=== PATIENT | male | born 1990 | race Caucasian/White ===

== ENCOUNTER 2021-10-24 06:42 | Emergency (ER) | payer OTHER ==
[2021-10-24 07:21] LABS: ALBUMIN 4.7 g/dL (3.2-5.5); ALBUMIN/GLOBULIN RATIO 1.9 (1.0-2.2); BILIRUBIN,TOTAL 0.9 mg/dL (0.2-1.0); CALCIUM 9.6 mg/dL (8.5-10.3); POTASSIUM 3.5 mmol/L (3.5-5.0); TOTAL PROTEIN 7.2 g/dL (6.7-8.2)
[2021-10-24] MEDS ORDERED: KETOROLAC 30 MG/ML VIAL IVP STA (07:24)
--- NOTE | 2021-10-24 07:27 | ED Physician Documentation ---
PD HPI ABD PAIN - Stated complaint Stated Complaint: ABD PX - Chief complaint Chief Complaint: Abd Pain - History obtained from History obtained from: Patient - History of Present Illness Timing - onset: Enter time (429), Today Timing - duration: Hours Timing - details: Gradual onset, Still present Quality: Sharp, Pain Location: RUQ Radiation: Chest Improved by: Laying still Worsened by: Breathing, Position, Palpation Associated symptoms: Nausea. No: Fever, Vomiting, Diarrhea, Constipation Similar symptoms before: Has not had sx before Recently seen: Not recently seen - Additional information Additional information: 31-year-old male with abdominal pain that started up gradually about 4:30 in the morning has had an increase in his pain to where it is difficult for him to take a deep breath. Indicates pain is in the right upper quadrant, has never had an episode like this previously, last had a hamburger to eat. Works night shifts, went home to try to lay down and found this pain mounting on him. He has not had a fever or vomiting. His pain is somewhat better as time has gone on here in the emergency department. Review of Systems Constitutional: denies: Fever Eyes: denies: Decreased vision Ears: denies: Ear pain Nose: denies: Congestion Throat: denies: Sore throat Cardiac: denies: Chest pain / pressure, Palpitations Respiratory: denies: Dyspnea, Cough GI: reports: Abdominal Pain. denies: Vomiting, Constipation, Diarrhea : denies: Dysuria, Frequency Skin: denies: Rash Musculoskeletal: denies: Neck pain, Back pain, Extremity pain Neurologic: denies: Generalized weakness, Focal weakness, Numbness PD PAST MEDICAL HISTORY - Past Medical History Past Medical History: Yes Cardiovascular: None Respiratory: None Neuro: None Endocrine/Autoimmune: None GI: None : None HEENT: None Psych: None Musculoskeletal: Chronic back pain Derm: None - Present Medications Home Medications: Ambulatory Orders Medication Instructions Recorded Confirmed No Known Home Medications 10/24/21 10/24/21 - Allergies Allergies/Adverse Reactions: Allergies Allergy/AdvReac Type Severity Reaction Status Date / Time No Known Drug Allergies Allergy Verified 10/24/21 07:09 - Social History Does the pt smoke?: No Smoking Status: Never smoker Does the pt drink ETOH?: Yes Does the pt have substance abuse?: No - Immunizations Immunizations are current?: Yes - POLST Patient has POLST: No PD ED PE NORMAL - Vitals Vital signs reviewed: Yes (tachypneic and hypertensive ) - General General: Alert and oriented X 3, Well developed/nourished, Other (winches with a deep breath) - HEENT HEENT: Atraumatic, PERRL, EOMI - Neck Neck: Supple, no meningeal sign, No bony TTP - Cardiac Cardiac: RRR, No murmur - Respiratory Respiratory: No respiratory distress, Clear bilaterally - Abdomen Abdomen: Normal bowel sounds, Soft, Non distended, No organomegaly, Other (RUQ tenderness to palpation with arrest of respiration) - Back Back: No CVA TTP, No spinal TTP - Derm Derm: Normal color, Warm and dry, No rash - Extremities Extremities: No deformity, No edema - Neuro Neuro: Alert and oriented X 3, 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, No motor deficit, No sensory deficit, Normal speech Eye Opening: Spontaneous Motor: Obeys Commands Verbal: Oriented GCS Score: 15 - Psych Psych: Normal mood, Normal affect Results - Vitals Vitals: Vital Signs - 24 hr 10/24/21 06:59 Temperature 37.1 C Heart Rate 79 Respiratory 26 H Rate Blood Pressure 150/105 H O2 Saturation 96 Oxygen O2 Source Room air - Labs Labs: Laboratory Tests 10/24/21 10/24/21 10/24/21 06:55 06:55 07:35 WBC 10.9 H RBC 5.30 Hgb 16.0 Hct 44.6 MCV 84.2 MCH 30.2 MCHC 35.9 RDW 11.6 L Plt Count 306 MPV 9.2 Neut # (Auto) 5.8 Lymph # (Auto) 3.7 H [place] # (Auto) 0.9 Eos # (Auto) 0.4 Baso # (Auto) 0.1 Absolute Nucleated RBC 0.00 Nucleated RBC % 0.0 Sodium 136 Potassium 3.5 Chloride 100 L Carbon Dioxide 27 Anion Gap 9.0 BUN 12 Creatinine 1.0 Estimated GFR (MDRD) 88 L Glucose 107 H Calcium 9.6 Total Bilirubin 0.9 AST 26 ALT 58 Alkaline Phosphatase 72 Total Protein 7.2 Albumin 4.7 Globulin 2.5 Albumin/Globulin Ratio 1.9 Lipase 34 Urine Color YELLOW Urine Clarity CLEAR Urine pH 6.5 Ur Specific [place] 1.010 Urine Protein NEGATIVE Urine Glucose (UA) NEGATIVE Urine Ketones NEGATIVE Urine Occult Blood NEGATIVE Urine Nitrite NEGATIVE Urine Bilirubin NEGATIVE Urine Urobilinogen 0.2 (NORMAL) Ur Leukocyte Esterase NEGATIVE Ur Microscopic Review NOT INDICATED Urine Culture Comments NOT INDICATED - Rads (name of study) gb u/s Radiology: Prelim report reviewed (Impression: Cholelithiasis with focal gallbladder wall thickening in the gallbladder neck and a nonmobile stone seen in the gallbladder neck.), EMP read indepedently, See rad report Procedures - Bedside sono Bedside sono by EMP: With use of bedside ultrasound the right upper quadrant is imaged and there is a sonographically tender gallbladder with shadowing stones. PD MEDICAL DECISION MAKING - ED course Complexity details: reviewed results, re-evaluated patient, considered differential, d/w patient ED course: 31-year-old male with acute right upper quadrant abdominal pain has improvement in his pain as he is here in the emergency department he does continue to have pain and he has shadowing stones in his gallbladder and a tender gallbladder on sonographic bedside examination. A formal ultrasound is ordered the patient is administered 30 mg of Toradol intravenously. The patient's biochemical profile does not indicate evidence of obstruction. Departure - Departure Disposition: 01 Home, Self Care Clinical Impression: Cholelithiasis Qualifiers: Cholelithiasis location: gallbladder Cholecystitis presence: without cholecystitis Biliary obstruction: without biliary obstruction Qualified Code( s): K80.20 - Calculus of gallbladder without cholecystitis without obstruction Condition: Stable Instructions: ED Diet Low Fat, ED Gallstone W Biliary Colic Follow-Up: [facility] Alfonso [Provider Group] Ervin Nicholson MD [Provider Admit Priv/Credential] - Comments: Shahab, today it looks like you have gallstones and you are having a gallbladder attack. Gallbladder attacks typically last 4 to 5 hours and usually occur in the immigration case manager hours. This is likely to recur and the recommendation is to have your gallbladder taken out. You have stones that are of the size to possibly cause other complications such as a common duct stone or cholecystitis. Follow up with the surgeon to discuss options.
[2021-10-24 07:28] LABS: BASOPHILS # (AUTO) 0.1 10^3/uL (0.0-0.1); BASOPHILS % (AUTO) 0.5 %; EOSINOPHILS # (AUTO) 0.4 10^3/uL (0.0-0.7); EOSINOPHILS % (AUTO) 3.9 %; HCT - HEMATOCRIT 44.6 % (42.0-52.0); LYMPHOCYTES # (AUTO) 3.7 10^3/uL (1.5-3.5); MEAN CORPUSCULAR HEMOGLOBIN 30.2 pg (27.0-31.0); MEAN CORPUSCULAR HGB CONC 35.9 g/dL (32.0-36.0); MEAN CORPUSCULAR VOLUME 84.2 fL (80.0-94.0); MEAN PLATELET VOLUME 9.2 fL (7.4-11.4); MONOCYTES # (AUTO) 0.9 10^3/uL (0.0-1.0); MONOCYTES % (AUTO) 8.3 %; NEUTROPHILS # (AUTO) 5.8 10^3/uL (1.5-6.6); NEUTROPHILS % (AUTO) 52.9 %; PLT - PLATELET COUNT 306 10^3/uL (130-450); RED CELL DISTRIBUTION WIDTH 11.6 % (12.0-15.0); WHITE BLOOD COUNT 10.9 x10^3/uL (4.8-10.8)
[2021-10-24 07:46] LABS: BILIRUBIN,URINE NEGATIVE (NEGATIVE); GLUCOSE, URINE (UA) NEGATIVE (NEGATIVE); KETONES,URINE (UA) NEGATIVE (NEGATIVE); LEUKOCYTE ESTERASE, URINE NEGATIVE (NEGATIVE); NITRITE,URINE NEGATIVE (NEGATIVE); OCCULT BLOOD,URINE NEGATIVE (NEGATIVE); PH,URINE 6.5 PH (5.0-7.5); PROTEIN,URINE NEGATIVE (NEGATIVE); UROBILINOGEN,URINE 0.2 (NORMAL) E.U./dL (NORMAL)
[2021-10-24 07:47] LABS: CLARITY,URINE CLEAR (CLEAR)
--- NOTE | 2021-10-24 10:17 | Ultrasound Report ---
PROCEDURE: Abdomen Limited INDICATIONS: RUQ pain TECHNIQUE: Real-time focused scanning was performed of the abdomen, with image documentation. COMPARISON: None FINDINGS: Liver measures 16.6 cm, within normal limits. Hepatic echotexture is normal. The gallbladder contains sludge and stones. There is a focal area of wall thickening near the neck, h owever the remaining gallbladder demonstrates no wall thickening. A nonmobile stone is noted within t he gallbladder neck. The pancreas is not well-visualized due to overlying bowel gas. The right kidney is normal. IMPRESSION: Cholelithiasis with focal gallbladder wall thickening in the gallbladder neck and a non mobile stone seen in the gallbladder neck. Reviewed by: Maciej Capone on 10/24/2021 9:15 AM [facility] Approved by: Maciej Capone on 10/24/2021 9:15 AM [facility] Station ID: [id number]
[2021-10-24 10:31] VITALS: BP 128/79
== END 2021-10-24 10:31 | disposition home or self-care (01) ==
LOC: ED 06:42
DX: K80.20 Calculus of gallbladder without cholecystitis without obstruction (principal)
CPT/HCPCS: 36415; 80053; 81001; 81003; 83690; 85025; 87086; 96374; 99284

== ENCOUNTER 2022-01-08 12:08 | Day surgery (SDC) | payer OTHER ==
[2022-01-08] MEDS ORDERED: LACTATED RINGERS 1,000 ML IV ONE (12:23)
--- NOTE | 2022-01-08 12:57 | ANESTHESIA ---
Pre-Anesthesia VS, & Labs - Diagnosis chronic cholecystitis - Procedure lap [email or web address] Vital Signs: Temp Pulse Resp BP Pulse Ox 36.7 C 74 16 130/79 100 01/08/22 12:15 01/08/22 12:15 01/08/22 12:15 01/08/22 12:15 01/08/22 12:15 Height: 6 ft 3 in Weight (kg): 101.3 kg Body Mass Index: 27.9 BMI Classification: Overweight - NPO >8 hours Home Medications and Allergies No Known Home Medications 10/24/21 Allergies/Adverse Reactions: Allergies Allergy/AdvReac Type Severity Reaction Status Date / Time No Known Drug Allergies Allergy Verified 01/08/22 12:30 Anes History & Medical History - Anesthetic History Family history of Anesthesia Complications: Denies Family history of Malignant Hyperthermia: Denies - Medical History Cardiovascular: reports: None Pulmonary: reports: None Gastrointestinal: reports: None, Cholelithiasis Urinary: reports: None Neuro: reports: None Musculoskeletal: reports: Chronic back pain Endocrine/Autoimmune: reports: None Blood Disorders: reports: None Skin: reports: None Smoking Status: Current every day smoker (vapes) Psychosocial: reports: No issues indicated History of Cancer?: No - Surgical History Other Past Surgical History: wisdom teeth Exam General: Alert, Oriented x3, Cooperative, No acute distress Dental: WNL Mouth Openin Fingerbreadth Neck Mobility: Normal Mallampati classification: II Thyromental Distance: 4-6 cm Respiratory: Lungs clear, Normal breath sounds, No respiratory distress, No accessory muscle use Cardiovascular: Regular rate, Normal S1, Normal S2, No murmurs Mental/Cognitive Status: Alert/Oriented X3, Normal for patient Plan Anesthesia Type: General Consent for Procedure(s) Verified and Reviewed: Yes Code Status: Attempt Resuscitation ASA classification: 2-Mild systemic disease Is this case an emergency?: No
[2022-01-08] MEDS ORDERED: PROPOFOL 200 MG/20 ML VIAL IVP ONE (13:13)
[2022-01-08] MEDS ORDERED: LIDOCAINE-MPF 2% 5 ML VIAL ONE (13:13)
[2022-01-08] MEDS ORDERED: ROCURONIUM 50 MG/5 ML VIAL ONE (13:14)
[2022-01-08] MEDS ORDERED: MIDAZOLAM 2 MG/2 ML VIAL ONE (13:14)
[2022-01-08] MEDS ORDERED: fentaNYL 100 MCG/2 ML VIAL ONE ×2 (13:14→16:03)
[2022-01-08] MEDS ORDERED: SEVOFLURANE 250 ML LIQUID INH ONE (13:19)
[2022-01-08] MEDS ORDERED: MORPHINE 2 MG/ML CARPUJECT IVP PRN (13:21)
[2022-01-08] MEDS ORDERED: ATROPINE ABBOJECT 1 MG/10 ML SYRINGE IVP PRN (13:21)
[2022-01-08] MEDS ORDERED: HYDROmorphone 0.5 MG/0.5 ML SYRINGE IVP PRN (13:21)
[2022-01-08] MEDS ORDERED: fentaNYL 100 MCG/2 ML VIAL IVP PRN (13:21)
[2022-01-08] MEDS ORDERED: NALOXONE 0.4 MG/ML VIAL IVP PRN (13:21)
[2022-01-08] MEDS ORDERED: ONDANSETRON 4 MG/2 ML VIAL IVP PRN ×2 (13:21→15:31)
[2022-01-08] MEDS ORDERED: LACTATED RINGERS 900 ML IV ONE ×2 (13:26)
[2022-01-08] MEDS ORDERED: BUPIVACAINE 0.5% PF 10 ML VIAL ONE (13:29)
[2022-01-08] MEDS ORDERED: LIDOCAINE MPF 2%-EPI 1:200000 20 ML VIAL ONE (13:29)
[2022-01-08] MEDS ORDERED: LACTATED RINGERS 1,000 ML IV SCH (14:00)
[2022-01-08] MEDS ORDERED: ceFAZolin 1 GM VIAL ONE (14:09)
[2022-01-08] MEDS ORDERED: BUPIVACAINE 0.5% PF 10 ML VIAL IM ONE ×2 (14:25)
[2022-01-08] MEDS ORDERED: LIDOCAINE 2%-EPI 1:100000 20 ML MDV SUBQ ONE ×2 (14:26)
[2022-01-08] MEDS ORDERED: GLYCOPYRROLATE 1 MG/5 ML VIAL ONE (14:35)
[2022-01-08] MEDS ORDERED: KETOROLAC 30 MG/ML VIAL ONE (15:12)
[2022-01-08] MEDS ORDERED: DEXAMETHASONE 4 MG/ML VIAL ONE (15:12)
[2022-01-08] MEDS ORDERED: HYDROmorphone 1 MG/ML CARPUJECT ONE (15:12)
[2022-01-08] MEDS ORDERED: ONDANSETRON 4 MG/2 ML VIAL ONE (15:12)
[2022-01-08] MEDS ORDERED: SUGAMMADEX 200 MG/2 ML VIAL IVP ONE (15:16)
[2022-01-08] MEDS ORDERED: HYDROcod/ACETAM 5/325 MG TABLET PO PRN (15:31)
--- NOTE | 2022-01-08 15:37 | OPERATIVE REPORT ---
Operative Report - General Procedure Date: 01/08/22 Planned Procedure: laparoscopic cholecystectomy Pre-Op Diagnosis: chronic cholecystitis Procedure Performed: laparoscopic cholecystectomy Post Op Diagnosis: chronic cholecystitis - Procedure Note Primary Surgeon: kenneth hoang Anesthesia Technique: General ET tube, Local Pathology: gallbladder Estimated Blood Loss (mL): 10 Drain/Tube Type: Other (none) Indications: chronic cholecystitis with pain Findings: significant inflammation and obstructed gallbladder Complications: none - Other Other Information/Narrative: The patient was properly identified, brought to the operating room and placed in supine position. Sequential compression devices were placed. General endotracheal anesthesia was induced. The patient was prepped and draped in a sterile fashion and given preoperative antibiotics. Local anesthetic was given to incision areas. An incision was made in the periumbilical area. Dissection proceeded down to fascia. The fascia was incised lifted upwards and abdomen entered with a Veress needle. CO2 was insufflated to a pressure of 15. An 11 mm trocar followed by a 30 degree scope was placed. There was no evidence of injury from Veress needle or trocar placement. Under direct vision 2 5 mm trochars were placed in the right upper quadrant and an 11 mm trocar was placed in the epigastrium. Body of the gallbladder was retracted anterior. Lateral attachments were partially taken down further mobilizing the gallbladder more anterior and away from the duodenum. The infundibulum of the gallbladder was then retracted right lateral and caudad. With minimal use of cautery a large bare cystic plate area or window was carefully created. The cystic duct was inspected from right lateral and left lateral positions. [] The cystic duct was then clipped at the gallbladder and 3 times slightly proximal and sharply divided. The cystic artery was clipped at the gallbladder and then 2 times slightly proximal and sharply divided. The gallbladder was mobilized off from the bed of the liver with hook cautery. The gallbladder was placed in Endo Catch bag and brought out through the epigastric trocar site. Hemostasis was assured. Trochars were removed under direct vision. Fascia at the larger trocar sites was closed with [id number] are running 0 Vicryl suture. Subcutaneous tissue was irrigated and skin closed with interrupted 4-0 Monocryl. Dressings were applied. Patient tolerated the procedure well was awakened and brought to recovery in good condition.
--- NOTE | 2022-01-08 15:57 | ANESTHESIA POST OP EVALUATION ---
Anesthesia Post Eval - Post Anesthesia Eval Vitals: Last Vital Signs Temp 36.2 C L 01/08/22 15:45 Pulse 71 01/08/22 15:51 Resp 16 01/08/22 15:51 BP 143/75 H 01/08/22 15:51 Pulse Ox 100 01/08/22 15:51 CV Function Including HR & BP: Stable Pain Control: Satisfactory Nausea & Vomiting: Negative Mental Status: Baseline Respiratory Status: Airway Patent Hydration Status: Satisfactory Anesthesia Complications: None
[2022-01-08 16:47] VITALS: BP 115/77
== END 2022-01-08 12:09 | disposition home or self-care (01) ==
LOC: SDS 12:08
PROVIDERS: ATTEND Surgery
PROC: 0FT44ZZ Resection of Gallbladder, Percutaneous Endoscopic Approach (ICD-10-PCS; principal; 2022-01-08 13:15)
DX: K80.10 Calculus of gallbladder with chronic cholecystitis without obstruction (principal); F17.290 Nicotine dependence, other tobacco product, uncomplicated
CPT/HCPCS: 47562; J1170; J3490; J7120